=== PATIENT | male | born 1975 ===

== ENCOUNTER 2017-08-19 22:06 | Emergency (ER) | payer SELFPAY ==
[2017-08-19 22:21] VITALS: BP 147/93; PULSE 96; RESP 20; TEMP 97.9; O2SAT 97
--- NOTE | 2017-08-19 22:34 | C.PDOC ---
History Of Present Illness 42 year old male presents to ED requesting medication refill. States he is from [place] and usually has his medications mailed to him but has not received latest and ran out 2 weeks ago. Offers no complaints Time Seen by Provider: 08/19/17 22:23 Chief Complaint (Nursing): Med Refill History Per: Patient History/Exam Limitations: no limitations Past Medical History Reviewed: Historical Data, Nursing Documentation, Vital Signs Vital Signs: Last Vital Signs Temp 97.9 F 08/19/17 22:17 Pulse 96 H 08/19/17 22:17 Resp 20 08/19/17 22:17 BP 147/93 H 08/19/17 22:17 Pulse Ox 97 08/19/17 22:17 - Medical History PMH: Diabetes (pre), HTN, Hypercholesterolemia Surgical History: Tonsillectomy Family History: States: Unknown Family Hx - Social History Hx Alcohol Use: Yes Hx Substance Use: No - Immunization History Hx Tetanus Toxoid Vaccination: No Hx Influenza Vaccination: No Hx Pneumococcal Vaccination: No Review Of Systems Except As Marked, All Systems Reviewed And Found Negative. Physical Exam - Physical Exam Appears: Well, Non-toxic, No Acute Distress Skin: Warm, Dry, No Rash Head: Atraumatic, Normacephalic Eye(s): bilateral: Normal Inspection, EOMI Neck: Normal ROM Chest: Symmetrical Cardiovascular: Rhythm Regular, No Murmur Respiratory: Normal Breath Sounds, No Wheezing Extremity: Bilateral: Atraumatic, Normal Color And Temperature, Normal ROM Neurological/Psych: Oriented x3, Normal Speech ED Course And Treatment O2 Sat by Pulse Oximetry: 97 Disposition Counseled Patient/Family Regarding: Need For Followup, Rx Given - Disposition Referrals: Non [facility] Provider, [Primary Care Provider] - [facility] [Outside] [facility] [Outside] Disposition: HOME/ ROUTINE Disposition Time: 22:34 Condition: GOOD Additional Instructions: Por favor jose roberto un seguimiento en la clnica para ms cuidado y hammer medicamento se puede volver a llenar Prescriptions: Atorvastatin [Lipitor] 20 mg PO DAILY #14 tab Lisinopril/Hydrochlorothiazide [Lisinopril-Hctz 10-12.5 mg Tab] 1 each PO DAILY #14 tablet Metformin ER [Glucophage XR] 750 mg PO DAILY #30 ter Instructions: Medicine Refill (ED) Forms: [employer] (Estonian) Print Language: BULGARIAN - POA Present On Arrival: None - Clinical Impression Clinical Impression: Medication refill
== END 2017-08-19 23:11 | disposition home or self-care (01) ==
LOC: C.ER 22:06 → SUPCPDRO 22:06 → C.ER 23:11
DX: Z76.0 Encounter for issue of repeat prescription (principal); I10 Essential (primary) hypertension

== ENCOUNTER 2018-03-22 10:18 | Emergency (ER) | payer SELFPAY ==
[2018-03-22 10:29] VITALS: BP 127/84; PULSE 72; RESP 20; TEMP 98.1; O2SAT 100
--- NOTE | 2018-03-22 10:42 | C.PDOC ---
History Of Present Illness L KNEE INJURY LAST NIGHT. PS ACCID WALKED INTO HARD OBJECT. CHRONIC L LEG SWELL DUE TO PRIOR TRAUMA 20 YRS AGO, PS CURRENT SIZE UNCH FROM BASELINE. CO PAIN FRONT OF L KNEE, WORSE W MOVEMENT AND WT BEAR. NO OTHER ASSOC SX, INJURY EXAM NAD EXT CHRONIC L THIGH SWELL. GEN TEND ANT L KNEE, MIN SWELL. NO GROSS DEFORM. AROM WO DIFF. SKIN INTACT NEURO NO FOCAL DEF GAIT CHRONIC CANE USE. Time Seen by Provider: 03/22/18 10:42 Chief Complaint (Nursing): Lower Extremity Problem/Injury History Per: Patient Onset/Duration Of Symptoms: Hrs Current Symptoms Are (Timing): Still Present Severity: Moderate Additional History Per: Patient - Knee Description Of Injury: Struck With Object Past Medical History Reviewed: Historical Data, Nursing Documentation, Vital Signs Vital Signs: Last Vital Signs Temp 98.1 F 03/22/18 10:27 Pulse 72 03/22/18 10:27 Resp 20 03/22/18 10:27 BP 127/84 03/22/18 10:27 Pulse Ox 100 03/22/18 11:43 - Medical History PMH: Diabetes (pre), HTN, Hypercholesterolemia Denies: CHF Surgical History: Tonsillectomy Family History: States: No Known Family Hx - Social History Hx Alcohol Use: Yes Hx Substance Use: No - Immunization History Hx Tetanus Toxoid Vaccination: No Hx Influenza Vaccination: No Hx Pneumococcal Vaccination: No Review Of Systems Except As Marked, All Systems Reviewed And Found Negative. Musculoskeletal: Positive for: Other (Left Knee Pain) Neurological: Negative for: Weakness, Numbness Physical Exam - Physical Exam Appears: Non-toxic, No Acute Distress Skin: Normal Color, Warm, Dry, Other (Intact) Head: Normacephalic Eye(s): bilateral: Normal Inspection Cardiovascular: Rhythm Regular Respiratory: Other (NARD) Extremity: Normal ROM, Tenderness (General tenderness to anterior left knee ), No Deformity, Swelling ( chornic left thigh swelling ) Neurological/Psych: Oriented x3, Normal Speech, Normal Sensation Gait: Other (Chronic cane use) ED Course And Treatment O2 Sat by Pulse Oximetry: 100 (RA) Pulse Ox Interpretation: Normal - Other Rad L KNEE X-Ray: Interpreted by Me (NEG) Progress Note: Xrays of left leg ordered and reviewed. Xrays negative. Patient given Rx for Tylenol, Motrin, and Lidoderm patch. Patient instructed to follow up with PMD. Disposition Counseled Patient/Family Regarding: Studies Performed, Diagnosis, Need For Followup, Rx Given - Disposition Referrals: [facility] [Outside] [facility] [Outside] Disposition: HOME/ ROUTINE Disposition Time: 11:26 Condition: IMPROVED Prescriptions: Acetaminophen [Tylenol 325mg tab] 650 mg PO Q6 #30 tab Ibuprofen [Motrin] 600 mg PO Q6 #30 tab Lidocaine 5% [Lidoderm] 1 ea TD PRN PRN #10 patch PRN Reason: Pain, Moderate (4-7) Instructions: Contusion (DC), Knee Sprain (DC) Forms: [employer] (Maori), Work Excuse Print Language: TURKMEN - Clinical Impression Clinical Impression: Knee contusion - Scribe Statement The provider has reviewed the documentation as recorded by the Scribmadison Rodriguez All medical record entries made by the Scribe were at my direction and personally dictated by me. I have reviewed the chart and agree that the record accurately reflects my personal performance of the history, physical exam, medical decision making, and the department course for this patient. I have also personally directed, reviewed, and agree with the discharge instructions and disposition.
[2018-03-22] MEDS ORDERED: Lidocaine 5% Patch TD STA (11:26)
[2018-03-22] MEDS ORDERED: Lidocaine 5% Patch TD ONE (11:34)
--- NOTE | 2018-03-22 12:01 | RAD ---
PROCEDURE: Left Knee Radiographs. HISTORY: Pain. COMPARISON: None. FINDINGS: BONES: No evidence acute displaced fracture nor dislocation. The osseous structures appear intact. JOINTS: Mild tricompartmental degenerative osteoarthritis. Marginal medial osteophyte formation seen arising from the medial femoral condyles. Slight spurring tibial spines. Prominent patellofemoral of the osteophyte formation. . JOINT EFFUSION: Trace suprapatellar joint effusion suspected. OTHER FINDINGS: None. IMPRESSION: No acute fractures. Mild degenerative osteoarthritis. . Suspect trace
== END 2018-03-22 11:48 | disposition home or self-care (01) ==
LOC: C.ER 10:18
DX: S80.02XA Contusion of left knee, initial encounter (principal); W22.8XXA Striking against or struck by other objects, initial encounter; E78.00 Pure hypercholesterolemia, unspecified; I10 Essential (primary) hypertension